=== PATIENT | male | born 1990 | race Caucasian/White ===

== ENCOUNTER 2023-12-15 18:41 | Emergency (ER) | payer OTHER, SELFPAY ==
[2023-12-15 18:48] VITALS: BP 117/73; PULSE 64; RESP 18; TEMP 37.1; O2SAT 100; BMI 18.2
--- NOTE | 2023-12-15 18:52 | XR_ITS ---
[address] [address] Patient Name: AMY BUTLER MRN: [id number] date: 1990 Sex: M Assigned Patient Location: ER Current Patient Location: Accession/Order Number: [id number] Exam Date: 12/15/2023 19:05 Report Date: 12/15/2023 21:06 At the request of: ASHELY CAMPOS Procedure: XR hand RT min 3V IMAGES REVIEWED: XR hand RT min 3V COMPARISON: None available. CLINICAL INDICATION: pain FINDINGS/IMPRESSION: Dorsal hand soft tissue laceration. No radiopaque foreign bodies in the soft tissues. No evidence of acute osseous abnormality. Slight chronic deformity of the fifth metacarpal. Electronically authenticated by: HERMILA HARE Date: 12/15/2023 21:06
--- NOTE | 2023-12-15 18:59 | ED.UPPEXIN1 ---
HPI - Extremity Injury (Upper) General Chief Complaint: Extremity Injury, Upper Stated Complaint: HAND INJURY FROM WORK Time Seen by Provider: 12/15/23 18:43 Mode of arrival: walk-in Limitations: no limitations History of Present Illness HPI narrative: Patient is a 33-year-old male who is right-hand dominant presents to the ER for the evaluation of an injury to the right hand that occurred at work just prior to arrival. Patient states a mold came down onto his right hand. He sustained a small 1 cm C-shaped wound over the dorsum of the hand proximal to the third MCP joint as well as a small avulsion of the skin adjacent to this, he has multiple small superficial abrasions over the dorsum of the hand. He denies numbness or tingling, he reports moderate pain of the hand that was worse with movement. Unknown last tetanus. Bleeding is well-controlled. Related Data Previous Rx's Medication Instructions Recorded hydrocodone 5 mg-acetaminophen 325 1 tab PO Q6H PRN pain #12 tabs 12/15/23 mg tablet ketorolac 10 mg tablet 10 mg PO TID PRN pain #10 tabs 12/15/23 Allergies Allergy/AdvReac Type Severity Reaction Status Date / Time No Known Drug Allergies Allergy Verified 12/15/23 18:48 Review of Systems ROS Constitutional Denies: fever or chills Ears, nose, mouth, and throat Denies: throat pain or nasal congestion Respiratory Denies: shortness of breath Gastrointestinal Denies: nausea or vomiting Musculoskeletal Reports: extremity pain and limited range of motion; Denies: back pain, neck pain, extremity swelling or joint pain Integumentary/Breast Denies: rash Neurological Denies: headache Endocrine Denies: excessive urination Hematologic/Lymphatic Denies: easy bruising or easy bleeding PFSH [facility] Social History Smoking status: Current every day smoker Exam Narrative Exam Narrative: Gen.: Awake, alert, in no distress Head: Normocephalic, atraumatic ENT: Moist mucous membranes Respiratory: No respiratory distress Extremities: Moves extremities equally, Right hand with normal sensation of the fingertips, no swelling or obvious deformity noted to the right hand or wrist. Multiple superficial abrasions noted over the dorsum of the right hand with mild edema and 1 cm laceration over the dorsum of the right hand proximal to the right third metacarpal. Laceration is well aligned, no active bleeding. Small skin avulsion noted adjacent to this. 2+ right radial pulse. Psych: Normal mood and affect Neuro: No focal neuro deficit Skin: Warm, dry, intact Constitutional Vital Signs, click to edit/add: Last Vital Signs Temp 98.8 F 12/15/23 18:48 Pulse 64 12/15/23 18:48 Resp 18 12/15/23 18:48 BP 117/73 12/15/23 18:48 Pulse Ox 100 12/15/23 18:48 O2 Del Method Room Air 12/15/23 18:48 Course Vital Signs Vital signs: Vital Signs Temperature 98.8 F 12/15/23 18:48 Pulse Rate 64 12/15/23 18:48 Respiratory Rate 18 12/15/23 18:48 Blood Pressure 117/73 12/15/23 18:48 Pulse Oximetry 100 12/15/23 18:48 Oxygen Delivery Method Room Air 12/15/23 18:48 Temperature 98.8 F 12/15/23 18:48 Pulse Rate 64 12/15/23 18:48 Respiratory Rate 18 12/15/23 18:48 Blood Pressure 117/73 12/15/23 18:48 Pulse Oximetry 100 12/15/23 18:48 Oxygen Delivery Method Room Air 12/15/23 18:48 MDM - Extremity Injury (Upper) MDM Narrative Medical decision making narrative: I discussed suture repair for the small laceration on the dorsum of the hand, patient stated that he prefers not to have sutures placed. The laceration is well aligned, not actively bleeding at this time. Steri-Strip was placed to this area to approximate the wound and patient was made aware of the limitations of Steri-Strips and wound healing. The remainder of the abrasions were cleansed and dressed with bacitracin. Tetanus updated in the ER. X-rays with no evidence of acute fracture or dislocation. Patient placed in a sterile dressing with Ford bandage. Activity as tolerated for work with a prescription of short course of analgesics for home. Return to the ER if symptoms change or worsen. Follow-up with occupational health. Medical Records Attestation: I reviewed the patient's medical records. Imaging Data XR hand: Attestation: I have reviewed the pertinent imaging results. Discharge Plan Discharge Chief Complaint: Extremity Injury, Upper Clinical Impression: Abrasion of multiple sites of right hand and wrist, Crushing injury of right hand Patient Disposition: Home, Self-Care Time of Disposition Decision: 19:30 Condition: Good Prescriptions / Home Meds: New hydrocodone-acetaminophen 5-325 mg tablet 1 tab PO Q6H PRN (Reason: pain) Qty: 12 0RF ketorolac 10 mg tablet 10 mg PO TID PRN (Reason: pain) Qty: 10 0RF Instructions: Abrasion (ED), Crush Injury (ED) Stand Alone Forms: Portal Instructions Referrals: [facility] - [facility] week Discharge Date/Time: 12/15/23 19:52
[2023-12-15] MEDS: BACITRACIN 0.9 GM PACKET 1 PACKET TOPICAL (19:35)
[2023-12-15] MEDS: KETOROLAC TROMETHAMINE 10 MG TABLET PO (19:36)
[2023-12-15] MEDS: ADACEL DIPH,PERTUSS(ACELL),TET VAC/PF 0.5 ML ADULT SYRINGE IM (19:36)
[2023-12-15] MEDS: OXYCODONE HCL/ACETAMINOPHEN 5MG/325MG 1 TAB PO (19:38)
== END 2023-12-15 19:52 | disposition home or self-care (01) ==
PROVIDERS: Emergency Provider Internal Medicine
DX: S67.21XA Crushing injury of right hand, initial encounter (principal); S60.511A Abrasion of right hand, initial encounter; Z23 Encounter for immunization; W31.89XA Contact with other specified machinery, initial encounter
CPT/HCPCS: 73130; 90471; 90715; 99284